=== PATIENT | female | born 1995 | race Caucasian/White ===

== ENCOUNTER 2024-08-22 23:53 | Emergency (ER) | payer OTHER ==
[~2024-08-22] VITALS: Ht 167.6 cm; Wt 72.6 kg
[2024-08-23 00:05] VITALS: BP 144/83; TEMP 98.6; O2SAT 99
[2024-08-23] MEDS ORDERED: IBUPROFEN 400 MG TABLET ONE (00:20)
[2024-08-23] MEDS: IBUPROFEN 400 MG TABLET PO ONE (00:21)
[2024-08-23] MEDS ORDERED: HYDR-3980 PO (00:58)
[2024-08-23] MEDS: MORPHINE SULFATE INJ 2 MG/ML DISP.SYRIN IM ONE (01:01)
[2024-08-23] MEDS: ONDANSETRON 4 MG TAB.RAPDIS SL ONE (01:01)
[2024-08-23] MEDS ORDERED: MORPHINE SULFATE INJ 4 MG/ML DISP.SYRIN ONE (01:19)
[2024-08-23] MEDS ORDERED: ONDANSETRON 4 MG TAB.RAPDIS ONE (01:19)
[2024-08-23] MEDS ORDERED: HYDR-4303 PO (10:41)
== END 2024-08-23 02:16 | disposition home or self-care (01) ==
LOC: ER 23:58
DX: S82.391A Other fracture of lower end of right tibia, initial encounter for closed fracture (principal); Z88.2 Allergy status to sulfonamides; W06.XXXA Fall from bed, initial encounter; Y93.83 Activity, rough housing and horseplay; Y92.89 Other specified places as the place of occurrence of the external cause; Y99.8 Other external cause status
CPT/HCPCS: 29505; 73590; 96372; 99283; J2270; Q0162